=== PATIENT | male | born 1975 | race Hispanic/Latino ===

== ENCOUNTER 2019-07-10 20:22 | Emergency (ER) | payer BC ==
[2019-07-10] MEDS ORDERED: METOCLOPRAMIDE 10 MG/2mL INJ ONE (21:08)
[2019-07-10] MEDS ORDERED: dexAMETHasone 10 MG/ML VIAL ONE (21:09)
[2019-07-10] MEDS ORDERED: ONDANSETRON 4 MG/2 ML VIAL ONE (21:09)
[2019-07-10] MEDS ORDERED: DIPHENHYDRAMINE 50 MG/ML VIAL ONE (21:09)
[2019-07-10] MEDS ORDERED: NA CHLORIDE 0.9% 100 ML IV ONE (21:09)
[2019-07-10] MEDS ORDERED: KETOROLAC 30 MG/ML INJ ONE (21:09)
[2019-07-10] MEDS ORDERED: NA CHLORIDE 0.9% 1,000 ML ONE (21:24)
--- NOTE | 2019-07-10 22:26 | EDPHYS ---
Physician Documentation [facility] Name: Tommy Askew Age: 44 yrs Sex: Male : 1975 Arrival Date: 07/10/2019 Time: 20:24 Bed 23 Private MD: ED Physician Kraig Serra HPI: 07/10 20:47 This 44 yrs old Male presents to ER via Ambulatory with complaints of High cp Blood Pressure, Headache. 20:47 The patient complains of pain to the top of head. cp 20:47 The patient describes the headache as aching, constant. Onset: The symptoms/episode cp began/occurred today. Associated signs and symptoms: Pertinent positives: nausea, Pertinent negatives: altered mental status, dizziness, fever, neck stiffness, vision loss, vomiting, weakness. Severity of symptoms: in the emergency department the pain a " 9" out of "10". Headache History: Other patient reports history of migraines and doest not report "worst headache of life". Patient reports noticing systolic blood pressure of 200 at home and a history of a recent head CT showing 2 brain masses. Historical: - Allergies: 20:41 anything with "PM" in it; bb - Home Meds: 20:41 Singulair Oral [Active]; Lipitor Oral [Active]; bb - PMHx: 20:41 High Cholesterol; bb - PSHx: 20:41 Appendectomy; Cholecystectomy; cyst off of large intestine; bb - Immunization history:: Adult Immunizations up to date. - Coronavirus screen:: The patient has NOT traveled to [place], [place], or [place] in the past 14 days. Proceed with normal triage process as indicated. - Social history:: Smoking status: Patient denies any tobacco usage or history of. - Ebola Screening: : No symptoms or risks identified at this time. ROS: 20:55 Constitutional: Negative for body aches, chills, fever, poor PO intake. cp 20:55 Eyes: Positive for blurry vision, Negative for vision loss. cp 20:55 Neck: Negative for pain with movement, pain at rest, stiffness, tenderness. 20:55 Cardiovascular: Negative for chest pain, edema, palpitations. 20:55 Respiratory: Negative for cough, shortness of breath, wheezing. 20:55 Abdomen/GI: Positive for nausea, Negative for abdominal pain, vomiting, diarrhea, constipation. 20:55 Back: Negative for pain at rest, pain with movement. 20:55 Skin: Negative for rash. 20:55 Neuro: Positive for headache, Negative for altered mental status, dizziness, weakness. 20:55 All other systems are negative. Exam: 21:00 Constitutional: The patient appears in no acute distress, alert, awake, cp non-diaphoretic, non-toxic, well developed, well nourished. 21:00 Head/Face: Normocephalic, atraumatic. cp 21:00 Eyes: Periorbital structures: appear normal, Pupils: equal, round, and reactive to light and accomodation, Extraocular movements: intact throughout, Conjunctiva: normal, no exudate, no injection, Sclera: no appreciated abnormality, Lids and lashes: appear normal, bilaterally. 21:00 ENT: External ear(s): are unremarkable, Ear canal(s): are normal, clear, TM's: bulging, is not appreciated, bilaterally, dullness, bilaterally, erythema, is not appreciated, bilaterally, Nose: is normal, Mouth: Lips: moist, Oral mucosa: pink and intact, moist, Posterior pharynx: is normal, airway is patent, no erythema, no exudate. 21:00 Neck: ROM/movement: is normal, is supple, without pain, no range of motions limitations, no meningismus, no nuchal rigidity. 21:00 Chest/axilla: Inspection: normal, Palpation: is normal, no crepitus, no tenderness. 21:00 Cardiovascular: Rate: tachycardic, Rhythm: regular. 21:00 Respiratory: the patient does not display signs of respiratory distress, Respirations: normal, no use of accessory muscles, labored breathing, is not present, Breath sounds: are clear throughout, no decreased breath sounds. 21:00 Abdomen/GI: Inspection: abdomen appears normal, Palpation: abdomen is soft and non-tender, in all quadrants. 21:00 Back: pain, is absent, ROM is normal. 21:00 Skin: no rash present. 21:00 Neuro: Orientation: to person, place \\T\\ time. Mentation: is normal, Cerebellar function: Romberg testing is negative, normal finger to nose testing, heel to chaves testing is normal, Motor: moves all fours, strength is normal, Sensation: is normal. Vital Signs: 20:41 BP 138 / 85; Pulse 101; Resp 14 S; Temp 98.8(O); Pulse Ox 96% on R/A; Weight 99.79 kg bb (R); Height 5 ft. 9 in. (175.26 cm) (R); Pain 9/10; 21:55 BP 115 / 62; Pulse 91; Pulse Ox 95% on R/A; vc 20:41 Body Mass Index 32.49 (99.79 kg, 175.26 cm) bb MDM: 20:36 Patient medically screened. cp 22:23 Data reviewed: vital signs, nurses notes, radiologic studies, CT scan. cp 22:23 Differential diagnosis: cluster headache, intracerebral hemorrhage, migraine, cp sinusitis, tension headache, intracranial mass. Counseling: I had a detailed discussion with the patient and/or guardian regarding: the historical points, exam findings, and any diagnostic results supporting the discharge/admit diagnosis, radiology results, the need for outpatient follow up, a family practitioner, to return to the emergency department if symptoms worsen or persist or if there are any questions or concerns that arise at home. Response to treatment: the patient's symptoms have markedly improved after treatment, VSS. Headache markedly improved, and as a result, I will discharge patient. 07/10 20:46 Order name: CT Head Brain wo Cont cp 07/10 20:46 Order name: IV; Complete Time: 21:13 cp 07/10 20:46 Order name: Misc. Order: needs ride home; Complete Time: 21:55 cp Administered Medications: 21:16 Drug: Zofran 4 mg Route: IVP; Site: right antecubital; vc 22:20 Follow up: Response: No adverse reaction; Marked relief of symptoms vc 21:18 Drug: TORadol - Ketorolac 15 mg Route: IVP; Site: right antecubital; vc 22:20 Follow up: Response: No adverse reaction; Marked relief of symptoms vc 21:20 Drug: Benadryl 25 mg Route: IVP; Site: right antecubital; vc 22:20 Follow up: Response: No adverse reaction; Marked relief of symptoms vc 21:22 Drug: Reglan 10 mg Route: IVP; Site: right antecubital; vc 22:20 Follow up: Response: No adverse reaction; Marked relief of symptoms vc 21:24 Drug: Decadron - Dexamethasone 10 mg Route: IVP; Site: right antecubital; vc 22:20 Follow up: Response: No adverse reaction; Marked relief of symptoms vc 21:26 Drug: NS 0.9% 1000 ml Route: IV; Rate: 1 bolus; Site: right antecubital; vc 22:20 Follow up: IV Status: Completed infusion vc Disposition: 22:45 Chart complete. cp 07/11 06:35 Co-signature as Attending Physician, Kraig Serra MD I agree with the assessment and tw4 plan of care. Disposition: 07/10/19 22:24 Discharged to Home. Impression: Headache. - Condition is Stable. - Discharge Instructions: General Headache Without Cause, How to Take Your Blood Pressure, [id number], Form - Blood Pressure Record Sheet. - Medication Reconciliation Form, Thank You Letter, Antibiotic Education, Prescription Opioid Use form. - SBAR form (07/10/19 23:03). bb - Follow up: Joe Davis MD; When: 2 - 3 days; Reason: Recheck today's complaints. - Problem is new. - Symptoms have improved. Signatures: Dispatcher [employer] EDMS Caty Salcido RN RN bb Curtis Hennessy, PA PA cp Kraig Serra MD MD tw4 Leydi Waddell RN RN vc Corrections: (The following items were deleted from the chart) 07/10 22:39 22:24 07/10/2019 22:24 Discharged to Home. Impression: Headache. Condition is Stable. vc Forms are Medication Reconciliation Form, Thank You Letter, Antibiotic Education, Prescription Opioid Use. Follow up: Joe Davis; When: 2 - 3 days; Reason: Recheck today's complaints. Problem is new. Symptoms have improved. cp
--- NOTE | 2019-07-10 22:26 | ER ---
Nurse's Notes [facility] Name: Tommy Askew Age: 44 yrs Sex: Male : 1975 Arrival Date: 07/10/2019 Time: 20:24 Bed 23 Private MD: Diagnosis: Headache Presentation: 07/10 20:36 Presenting complaint: Patient states: he had CT scan June 02 which showed " two bb spots" on his brain he states yesterday his BP was over 200 systolic and today he is having a bad headache and was told to come to the ED if he had a bad headache. Pt states he was in an argument earlier today with his roommate. Transition of care: patient was not received from another setting of care. Onset of symptoms was July 10, 2019. Risk Assessment: Do you want to hurt yourself or someone else? Patient reports no desire to harm self or others. Initial Sepsis Screen: Does the patient meet any 2 criteria? No. Patient's initial sepsis screen is negative. Does the patient have a suspected source of infection? No. Patient's initial sepsis screen is negative. Care prior to arrival: None. 20:36 Method Of Arrival: Ambulatory bb 20:36 Acuity: NAVJOT 3 bb Triage Assessment: 20:50 Headache History: The patient has had previous headaches and this one is less severe vc than previous episodes. Pain: Pain currently is 9 out of 10 on a pain scale. Pain began gradually, Also complains of nausea, photophobia. Historical: - Allergies: 20:41 anything with "PM" in it; bb - Home Meds: 20:41 Singulair Oral [Active]; Lipitor Oral [Active]; bb - PMHx: 20:41 High Cholesterol; bb - PSHx: 20:41 Appendectomy; Cholecystectomy; cyst off of large intestine; bb - Immunization history:: Adult Immunizations up to date. - Coronavirus screen:: The patient has NOT traveled to [place], [place], or [place] in the past 14 days. Proceed with normal triage process as indicated. - Social history:: Smoking status: Patient denies any tobacco usage or history of. - Ebola Screening: : No symptoms or risks identified at this time. Screenin:40 Abuse screen: Denies threats or abuse. Nutritional screening: No deficits noted. vc Tuberculosis screening: No symptoms or risk factors identified. Fall Risk None identified. Assessment: 20:41 General: Appears in no apparent distress. uncomfortable, Behavior is calm, cooperative, vc appropriate for age. Pain: Complains of pain in head. Neuro: Level of Consciousness is awake, alert, obeys commands, Oriented to person, place, time. Cardiovascular: Patient's skin is warm and dry. Respiratory: Respiratory effort is even, unlabored, Respiratory pattern is regular, symmetrical. GI: No signs and/or symptoms were reported involving the gastrointestinal system. : No signs and/or symptoms were reported regarding the genitourinary system. EENT: No signs and/or symptoms were reported regarding the EENT system. Derm: Skin is intact, is healthy with good turgor. Musculoskeletal: Circulation, motion, and sensation intact. Range of motion: intact in all extremities. 20:46 Neuro: Reports headache. vc 21:30 Reassessment: Patient and/or family updated on plan of care and expected duration. Pain vc level reassessed. Patient states feeling better. 22:30 Reassessment: Patient and/or family updated on plan of care and expected duration. Pain vc level reassessed. Patient is alert, oriented x 3, equal unlabored respirations, skin warm/dry/pink. Patient denies pain at this time. Patient states feeling better. Patient states symptoms have improved. Vital Signs: 20:41 BP 138 / 85; Pulse 101; Resp 14 S; Temp 98.8(O); Pulse Ox 96% on R/A; Weight 99.79 kg bb (R); Height 5 ft. 9 in. (175.26 cm) (R); Pain 9/10; 21:55 BP 115 / 62; Pulse 91; Pulse Ox 95% on R/A; vc 20:41 Body Mass Index 32.49 (99.79 kg, 175.26 cm) bb ED Course: 20:24 Patient arrived in ED. jg7 20:27 Curtis Hennessy PA is PHCP. cp 20:27 Kraig Serra MD is Attending Physician. cp 20:36 Leydi Waddell RN is Primary Nurse. vc 20:38 Triage completed. bb 20:41 Arm band placed on. vc 20:48 Patient has correct armband on for positive identification. vc 20:55 Inserted saline lock: 20 gauge in right antecubital area, using aseptic technique. jp3 21:09 Patient maintains SpO2 saturation greater than 95% on room air. jp3 21:11 Placed in gown. Bed in low position. Call light in reach. Side rails up X 1. Warm jp3 blanket given. Verbal reassurance given. Pulse ox on. NIBP on. 21:15 CT Head Brain wo Cont In Process Unspecified. EDMS 22:24 Joe Davis MD is Referral Physician. cp 22:37 No provider procedures requiring assistance completed. IV discontinued, intact, vc bleeding controlled, No redness/swelling at site. Pressure dressing applied. Administered Medications: 21:16 Drug: Zofran 4 mg Route: IVP; Site: right antecubital; vc 22:20 Follow up: Response: No adverse reaction; Marked relief of symptoms vc 21:18 Drug: TORadol - Ketorolac 15 mg Route: IVP; Site: right antecubital; vc 22:20 Follow up: Response: No adverse reaction; Marked relief of symptoms vc 21:20 Drug: Benadryl 25 mg Route: IVP; Site: right antecubital; vc 22:20 Follow up: Response: No adverse reaction; Marked relief of symptoms vc 21:22 Drug: Reglan 10 mg Route: IVP; Site: right antecubital; vc 22:20 Follow up: Response: No adverse reaction; Marked relief of symptoms vc 21:24 Drug: Decadron - Dexamethasone 10 mg Route: IVP; Site: right antecubital; vc 22:20 Follow up: Response: No adverse reaction; Marked relief of symptoms vc 21:26 Drug: NS 0.9% 1000 ml Route: IV; Rate: 1 bolus; Site: right antecubital; vc 22:20 Follow up: IV Status: Completed infusion vc Outcome: 22:24 Discharge ordered by MD. cp 22:38 Discharged to home ambulatory, with family. vc 22:38 Condition: improved 22:38 Discharge instructions given to patient, family, Instructed on discharge instructions, follow up and referral plans. Demonstrated understanding of instructions, follow-up care. 22:39 Patient left the ED. vc Signatures: Dispatcher [employer] EDMS Caty Salcido RN RN Curtis Abdullahi PA PA cp Pisarski, Jacob jp3 Cece Blake7 Calcote, Leydi, RN RN vc Corrections: (The following items were deleted from the chart) 21:10 21:09 Inserted saline lock: 20 gauge in right antecubital area, using aseptic jp3 technique. jp3
[2019-07-10 23:02] VITALS: TEMP 98.8
[2019-07-10 23:04] VITALS: BP 115/62; O2SAT 95
--- NOTE | 2019-07-12 10:34 | RAD REPORT ---
EXAM DESCRIPTION: CT Head Without Intravenous Contrast CLINICAL HISTORY: The patient is 44 years old and is Male; HEADACHE TECHNIQUE: Axial computed tomography images of the head/brain without intravenous contrast. Sagitt al and coronal reformatted images were created and reviewed. This CT exam was performed using one o r more of the following dose reduction techniques: automated exposure control, adjustment of the mA and/or kV according to patient size, and/or use of iterative reconstruction technique. COMPARISON: No relevant prior studies available. FINDINGS: Brain: Unremarkable. No hemorrhage. No significant white matter disease. No edema. Ventricles: Unremarkable. No ventriculomegaly. Bones/joints: Unremarkable. No acute fracture. Soft tissues: Unremarkable. Sinuses: Unremarkable as visualized. No acute sinusitis. Mastoid air cells: Unremarkable as visualized. No mastoid effusion. IMPRESSION: No acute intracranial findings. Electronically signed by: Gael Vásquez MD 07/10/2019 9:29 PM AGRICULTURAL ENGINEERING TECHNICIAN Due to temporary technical issues with the PACS/Fluency reporting system, reports are being signed by the in house radiologist as a courtesy to ensure prompt reporting. The interpreting radiologist is f ully responsible for the content of the report.
== END 2019-07-10 22:39 | disposition home or self-care (01) ==
LOC: ER 20:22
DX: R51 Headache (principal); E78.00 Pure hypercholesterolemia, unspecified; Z88.8 Allergy status to other drugs, medicaments and biological substances
CPT/HCPCS: 96361; 70450; 96375; 96374; 99284; J2765; J1200; J1100; J7030; J2405

== ENCOUNTER 2019-08-23 11:14 | Day surgery (SDC) | payer BC ==
--- OUTSIDE RECORDS SUMMARY | 2019-08-23 11:17 | XMS REPORT | Summary of Care ---
:1975 Author Organization [facility] [place] [address] Care Team Providers Name Role Phone Unavailable Primary Care Provider Unavailable Reason for Referral Consult, Test & Treat (Routine) Status Reason Specialty Diagnoses / Referred By Referred To Procedures Contact Contact E-Auth Not Urology Diagnoses Urinary frequency Chidi Rios [place] Urology Needed Procedures CYSTOSCOPY [address] [place] [address] [address]TH FLO[address], [address], [address] Phone: [phone] Phone: Reason for Visit Reason Comments Urinary Frequency Encounter Details Date Type Department Care Team Description 07/19/2019 Office Visit [facility] Chidi Rios MD Urinary Frequency Medicine Urology [address] [place] [address] 10TH [facility], [address] 10[address] Floor, [address] [phone] Allergies No Known Allergiesdocumented as of this encounter (statuses as of 08/01/2019) Medications No known medicationsdocumented as of this encounter (statuses as of 08/01/2019) Active Problems Problem Noted Date Urinary frequency 07/19/2019 documented as of this encounter (statuses as of 08/01/2019) Social History Tobacco Use Types Packs/Day Years Used Date Never Smoker Smokeless Tobacco: Never Used Alcohol Use Drinks/Week oz/Week Comments Not Currently Sex Assigned at Date Recorded Not on file Job Start Date Occupation Industry Not on file Not on file Not on file Travel History Travel Start Travel End No recent travel history available. documented as of this encounter Last Filed Vital Signs Vital Sign Reading Time Taken Comments Blood Pressure 133/85 07/19/2019 2:12 PM GHOST WRITER Pulse 80 07/19/2019 2:12 PM GHOST WRITER Temperature 36.9 C (98.5 F) 07/19/2019 2:12 PM GHOST WRITER Respiratory Rate - - Oxygen Saturation - - Inhaled Oxygen Concentration - - Weight - - Height - - Body Mass Index - - documented in this encounter Progress Notes Phyllis Roach - 07/19/2019 2:20 PM GHOST WRITER HPI Review of Systems Constitutional: Positive for activity change, appetite change, chills, fatigue and unexpected weightchange. HENT: Positive for congestion and sinus pressure. Eyes: Positive for visual disturbance. Cardiovascular: Negative. Gastrointestinal: Positive for abdominal pain, nausea, rectal pain and vomiting. Endocrine: Positive for cold intolerance, heat intolerance, polydipsia and polyuria. Genitourinary: Positive for difficulty urinating and frequency. Musculoskeletal: Positive for back pain. Skin: Positive for rash. Allergic/Immunologic: Positive for environmental allergies and food allergies. Neurological: Positive for dizziness, weakness, light-headedness and headaches. Hematological: Bruises/bleeds easily. Psychiatric/Behavioral: Positive for agitation, decreased concentration and sleep disturbance. The patient is hyperactive. All other systems reviewed and are negative. Physical Exam hidi Rios MD - 07/19/2019 11:30 AM CST44 yo male, NPV for urinary frequency. In past year, noted increased urinary frequency. Feels like not emptying well. Has significant terminal dribbling. Frequency is daytime and nighttime. Nocturia is better since has curtailed evening fluid intake. No hematuria, straining, dysuria. Hx: No stones. No prior surgery. No prior UTIs. ? Had a cyst near the anus - Dr. Choudhury operated, packed it for a while. FHx: had colon cancer. And prostate problems but pt thinks not prostate cancer. PMH: Migraines. "CT - spot on both sides of his brain? But repeat scan was normal" - being evaluated. ? Icteric? Allerg: No Excedrin PM. Local anesthetic lidocaine doesn't work for him. No antibiotic allergies known. PEx: Abd neg. Groins neg. Genit normal male. Perineum neg. CATHY: 40 gm prostate, no induration or asymmetry or nodule. Small scar near anus from prior incision? Benign finding. UA neg. SH: Nonsmoker. Quit 21 years ago. Works as [employer]. Imp: Urinary frequency. Plan: Send urine for culture and cytology. Draw today: F/T PSA and Chem 7. Return for flex cysto. documented in this encounter Plan of Treatment Date Type Specialty Care Team Description 08/26/2019 Procedure visit Urology Chidi Rios MD [address] [facility] 10TH FLOOR, [place] [address] [phone] Name Type Priority Associated Diagnoses Order Schedule CYSTOSCOPY Procedure Routine Urinary frequency 1 Occurrences starting 07/19/2019 until 07/19/2020 CYTOLOGY, URINE Lab Routine Urinary frequency Ordered: 07/19/2019 URINE CULTURE Microbiology Routine Urinary frequency Ordered: 07/19/2019 CYTOLOGY, URINE Lab Routine Urinary frequency Ordered: 07/19/2019 Health Maintenance Due Date Last Done Comments TETANUS SHOT (ADULT) 1992 HIV SCREENING 1995 FLU VACCINE > 6 MONTHS 12/31/2018 documented as of this encounter Procedures Procedure Name Priority Date/Time Associated Comments Diagnosis URINE CULTURE Routine 07/19/2019 12:48 Urinary frequency Results for this PM GHOST WRITER procedure are in the results section. PSA,TOTAL AND FREE Routine 07/19/2019 12:48 Urinary frequency Results for this PM GHOST WRITER procedure are in the results section. BASIC METABOLIC PANEL Routine 07/19/2019 12:48 Urinary frequency Results for this PM GHOST WRITER procedure are in the results section. YANDY,POST-VOID Routine 07/19/2019 Urinary frequency Results for this RES,US,NON-IMG procedure are in the results section. UROFLOWMETRY Routine 07/19/2019 Urinary frequency POCT URINALYSIS Routine 07/19/2019 Urinary frequency Results for this DIPSTICK procedure are in the results section. documented in this encounter Results URINE CULTURE (07/19/2019 12:48 PM GHOST WRITER) URINE CULTURE SPECIMEN NUMBER: [id number] CPL Comment: CULTURE, URINE SPECIMEN NUMBER: [id number] SPECIMEN COMMENT: URINE SOURCE: URINE REPORT STATUS: FINAL FINAL REPORT: 07/21/2019 <10,000 CFU/ML UROGENITAL SUSANNA PRESENT NO COMMON PATHOGENS Unless Otherwise Indicated, All Testing Performed At: [facility], [address] [place] [id number] Classified Ad Taker: Lester Roque M.D. CLIA Number [id number] [place]. [id number] Specimen Urine (substance) Performing Organization Address [facility] Phone Number [facility] [address] [place] [address] [phone] PSA,TOTAL AND FREE (07/19/2019 12:48 PM GHOST WRITER) PSA 1.74 <=4.00 NG/ML CPL PSA, FREE 0.48 NG/ML CPL PSA, % FREE 28 SEE BELOW % CPL Comment: Methodology is [employer]ub[employer] Electrochemiluminescence Immunoassay with World Health Organization (WHO) calibration. $$$$$ INTERPRETIVE INFORMATION $$$$$ INTERPRETIVE TABLE: Probability of prostatic carcinoma based on percent of free PSA in men with total PSA OF 4.00-10.00 ng/mL and negative digital rectal examination: Patient Age Free PSA 50-59 years 60-69 years >= 70 years (%) (%) (%) (%) <=10 49 58 65 11-18 27 34 41 19-25 18 24 30 >=26 9 12 16 INTERPRETIVE TABLE: Sensitivity and specificity for prostate carcinoma, men of all age groups, no prior stratification by total PSA: Free PSA cutoff Sensitivity Specificity (Less than %) (%) ( %) 23 86 30 25 93 20 27 96 14 (Ref: Catalona WJ et al. ADRIA; 277: 4050-5094. Benavides YT et al. Urology; 47:518-524. Laura RP et al. Urology; 48:45-50.) Unless Otherwise Indicated, All Testing Performed At: [facility], [address] [place] [id number] Classified Ad Taker: Lester Roque M.D. CLIA Number [id number] [place]. [id number] Specimen Blood Performing Organization Address [facility] Phone Number [facility] [address] [place] [phone] BASIC METABOLIC PANEL (07/19/2019 12:48 PM GHOST WRITER) GLUCOSE 92 70 - 99 MG/DL CPL BLOOD UREA NITROGEN 19 6 - 20 MG/DL CPL CREATININE 0.98 0.80 - 1.40 CPL MG/DL EGFR AA 110 >60 CPL ML/MIN/1.73 EGFR 95 >60 CPL ML/MIN/1.73 SODIUM 141 133 - 146 CPL MEQ/L POTASSIUM 3.9 3.5 - 5.4 CPL MEQ/L CHLORIDE 101 95 - 107 CPL MEQ/L CO2 27 19 - 31 MEQ/L CPL CALCIUM 9.0 8.5 - 10.5 CPL Comment: MG/DL Unless Otherwise Indicated, All Testing Performed At: [facility], [address] [place] [id number] Classified Ad Taker: Lester Roque M.D. CLIA Number [id number] [place]. [id number] Specimen Blood - Left upper arm structure (body structure) Performing Organization Address City/State/Zipcode Phone Number [address] [address] UROFLOWMETRY (07/19/2019) PVR 110 cc/ml PEAK FLOW 38.4 cc/sec VOIDED VOLUME 335 cc YANDY,POST-VOID RES,US,NON-IMG (07/19/2019) PVR 110 cc/ml POCT URINALYSIS DIPSTICK (07/19/2019) COLOR UA Yellow YELLOW/STRAW CLARITY UA Clear CLEAR GLUCOSE UA Negative NEGATIVE BILIRUBIN UA Negative NEGATIVE KETONES UA Negative NEGATIVE SPECIFIC GRAVITY UA 1.010 1.005 - 1.035 BLOOD UA Negative NEGATIVE PH UA 6.0 5 - 9 PROTEIN UA Negative NEGATIVE UROBILINOGEN UA 0.02 E.U/DL NORMAL MG/DL LEUKOCYTE ESTERASE UA Negative NEGATIVE NITRITE UA Negative NEGATIVE REDUCING SUBSTANCES URINE Specimen documented in this encounter Visit Diagnoses Diagnosis Urinary frequency - Primary documented in this encounter Insurance Payer Benefit Plan / Subscriber ID Effective Dates Phone Address Type Group BLUE CROSS PPO/EPO - BCBS xxxxxxxxxxxx 2019-Present [address] [place] [address] documented as of this encounter
[2019-08-23] MEDS ORDERED: Ringers Lactate 1,000 ML IV ONE (11:37)
[2019-08-23] MEDS ORDERED: MIDAZOLAM HCL 2 MG/2 ML INJ ONE (11:47)
[2019-08-23] MEDS ORDERED: FENTANYL CITR 100 MCG/2 ML ONE ×2 (11:47→13:00)
[2019-08-23] MEDS ORDERED: propofoL 200 MG/20 ML VIAL IV ONE (11:47)
[2019-08-23] MEDS ORDERED: LIDOCAINE 2% MPF 5 ML VIAL ONE (11:48)
[2019-08-23] MEDS ORDERED: dexAMETHasone 10 MG/ML VIAL ONE (11:48)
[2019-08-23] MEDS: CEFAZOLIN/SWI 1gm 1 GM/10 ML SYR ONE ×2 (12:26→12:45)
[2019-08-23] MEDS: BUPIVACA 0.25%/EPI 0.0005% MDV 50 ML VIAL ONE ×2 (12:27→12:53)
--- NOTE | 2019-08-23 13:07 | P.OP ---
Preoperative diagnosis: Perianal Abscess Postoperative diagnosis: Perianal Abscess Primary procedure: Incision and Drainage of Perianal Abscess Secondary procedure: Exam Under Anesthesia Anesthesia: GETA + Local Estimated blood loss: <2cc Specimen: cultures Findings: no fistula noted, + hemorrhoids Complications: None Transferred to: Recovery Room Condition: Good
[2019-08-23] MEDS ORDERED: KETOROLAC 30 MG/ML INJ ONE (13:09)
--- NOTE | 2019-08-23 13:56 | OP ---
Date of Procedure: 08/23/2019 Surgeon: Juan Reed MD, Preoperative Diagnosis: Perineal abscess. Postoperative Diagnosis: Perineal abscess. Procedures Performed: 1.Excision of perineal abscess. 2.Exam under anesthesia. Anesthesia: Endotracheal plus local. Estimated Blood Loss: Less than 10 mL. Specimen: Cultures. Findings: No fistula noted. Positive internal hemorrhoids. Complications: None. Disposition: Transferred to recovery room in good condition. Procedure In Detail: After informed consent was obtained, the patient was brought to the operating r oom, prepped and draped in the usual sterile fashion. After the patient was in lithotomy position, p alpation of the patient's right gluteal area right in the perianal position was noted to have a fluid collection. This was opened radially emanating from approximately 1.5 cm from the anal verge, immed iately encountered was abscess. This was cultured for both aerobic and anaerobic speciation at this time. I then digitized and opened up loculations in this area. This was apparently a multiloculated abscess. At this point, I then digitally probed the tract to see if there was a fistulous tract and used a probe. There appeared to be evidence of a previous tract on the inside of the anal canal. U nder exam under anesthesia using an anoscope, however, I could not elicit a tract at this time. Ther efore, I irrigated the area copiously multiple times until completely clear, packed the anus with Gel foam, and placed quarter-inch iodoform packing into the cavity and a sterile dressing was placed over top. The patient tolerated the procedure well without evidence of complication, transferred to the PACU in good condition. All counts were correct at the end of the case. JOSÉ LUIS/SYL Voice ID: [id number] Report ID: [id number]
[2019-08-23 14:30] VITALS: TEMP 97.9
[2019-08-23] MEDS ORDERED: HYDROCODONE/APAP 5/325 MG TAB ONE (14:54)
[2019-08-23 15:45] VITALS: BP 130/84; O2SAT 98
== END 2019-08-23 15:40 | disposition home or self-care (01) ==
LOC: OR 11:14
PROVIDERS: ATTEND Surgery
PROC: 0J9B0ZZ Drainage of Perineum Subcutaneous Tissue and Fascia, Open Approach (ICD-10-PCS; principal; 2019-08-23 14:30)
DX: L02.215 Cutaneous abscess of perineum (principal); E78.00 Pure hypercholesterolemia, unspecified; G47.33 Obstructive sleep apnea (adult) (pediatric); Z87.891 Personal history of nicotine dependence; Z80.0 Family history of malignant neoplasm of digestive organs; Z82.49 Family history of ischemic heart disease and other diseases of the circulatory system
CPT/HCPCS: 87070; 87205; 87075; 87077; 87186; 10060; J2704; J2250; J3010 ×2; J1100; J0690; J7120

== ENCOUNTER 2019-08-23 23:14 | Emergency (ER) | payer BC ==
--- NOTE | 2019-08-24 01:08 | ER ---
Nurse's Notes [facility] Name: Tommy Askew Age: 44 yrs Sex: Male : 1975 Arrival Date: 08/23/2019 Time: 23:18 Bed 15 Private MD: Diagnosis: Encounter for change or removal of surgical wound dressing Presentation: 08/22 23:33 Chief complaint: Patient states: i just had a surgery with Dr Reed this morning and mg2 i took shower and the dressing and packing came off. i just need to replace it. Coronavirus screen: Patient denies fever greater than 100.4F, cough, shortness of breath, or difficulty breathing. Proceed with normal triage process. Ebola Screen: No symptoms or risks identified at this time. Initial Sepsis Screen: Does the patient meet any 2 criteria? No. Patient's initial sepsis screen is negative. Initial Sepsis Screen: Does the patient have a suspected source of infection? No. Patient's initial sepsis screen is negative. Risk Assessment: Do you want to hurt yourself or someone else? Patient reports no desire to harm self or others. 23:33 Method Of Arrival: Ambulatory mg2 23:33 Acuity: NAVJOT 5 mg2 23:40 Onset of symptoms was August 23, 2019. mg2 Historical: - Allergies: 23:39 anything with "PM" in it; mg2 - Home Meds: 23:39 Lipitor Oral [Active]; Singulair Oral [Active]; mg2 - PMHx: 23:39 High Cholesterol; mg2 - PSHx: 23:39 Appendectomy; Cholecystectomy; cysts removal; mg2 - Immunization history:: Flu vaccine is not up to date. Flu vaccine is not up to date. - Social history:: Smoking status: Patient denies any tobacco usage or history of. Patient/guardian denies using alcohol, street drugs, IV drugs, Smoking status: Patient denies any tobacco usage or history of. Patient/guardian denies using alcohol, street drugs, IV drugs. Screenin:39 Abuse screen: Denies threats or abuse. Denies injuries from another. Nutritional mg2 screening: No deficits noted. Tuberculosis screening: No symptoms or risk factors identified. Fall Risk None identified. Assessment: 23:39 General: Appears in no apparent distress. comfortable, Behavior is calm, cooperative. mg2 Pain: Denies pain. Neuro: Level of Consciousness is awake, alert, obeys commands, Oriented to person, place, time, situation. Cardiovascular: Capillary refill < 3 seconds Patient's skin is warm and dry. Respiratory: Airway is patent Respiratory effort is even, unlabored, Respiratory pattern is regular, symmetrical. GI: No signs and/or symptoms were reported involving the gastrointestinal system. : No signs and/or symptoms were reported regarding the genitourinary system. EENT: Derm: post I and D in the buttocks. Musculoskeletal: Circulation, motion, and sensation intact. Capillary refill < 3 seconds. Vital Signs: 23:30 BP 142 / 100; Pulse 92; Resp 18; Temp 97.2(T); Pulse Ox 100% on R/A; Pain 0/10; fu 23:33 BP 142 / 100; Pulse 92; Resp 18; Temp 97.2; Pulse Ox 100% on R/A; mg2 08/23 01:20 BP 135 / 78; Pulse 90; Resp 18; Temp 97.5(O); Pulse Ox 100% on R/A; mg2 ED Course: 08/22 23:18 Patient arrived in ED. cf2 23:33 Jese Moreau, MELONIE is Primary Nurse. mg2 23:35 Triage completed. mg2 23:36 Arm band placed on. mg2 23:40 Patient has correct armband on for positive identification. mg2 23:45 Almas Young NP is PHCP. pm1 23:45 Kai Castelan MD is Attending Physician. pm1 08/23 01:06 Juan Reed MD is Referral Physician. pm1 01:20 Patient did not have IV access during this emergency room visit. fu 01:20 Dressings: iodoform, 4x4 gauze to gluteal fold. fu 01:31 No provider procedures requiring assistance completed. fu Administered Medications: No medications were administered Outcome: 01:06 Discharge ordered by . pm1 01:25 Discharged to home ambulatory. fu 01:25 Condition: stable 01:25 Discharge instructions given to patient, Instructed on discharge instructions, Demonstrated understanding of instructions, wound care. 01:32 Patient left the ED. mg2 Signatures: Almas Young NP PERSONAL CHEF pm1 Abhishek Skinner RN RN Jese Moreau RN RN [facility] Lacy Stack cf2 Corrections: (The following items were deleted from the chart) 08/22 23:36 23:33 BP 142 / 100; Resp 18bpm; Pulse Ox 100% RA; Temp 97.2F; mg2 mg2 08/23 01:30 08/22 23:00 BP 142 / 100; Pulse 92bpm; Resp 18bpm; Pulse Ox 100% RA; Temp 97.2F fu Tympanic; Pain 0/10; fu
--- NOTE | 2019-08-24 01:08 | EDPHYS ---
Physician Documentation [facility] Name: Tommy Askew Age: 44 yrs Sex: Male : 1975 Arrival Date: 08/23/2019 Time: 23:18 Bed 15 Private MD: ED Physician Kai Castelan HPI: 08/23 01:05 This 44 yrs old Male presents to ER via Ambulatory with complaints of Repack pm1 Cyst Pocket. 01:05 Patient presents to ED for recheck of: surgical packing. Patient had incision and pm1 drainage of an abscess with Dr. Reed today and the packing came out a little while he was showering. He was instructed to replace the packing every 6 hours and he was due for a packing change. The patient has experienced a previous episode, approximately 13 years ago. Historical: - Allergies: 08/22 23:39 anything with "PM" in it; mg2 - Home Meds: 23:39 Lipitor Oral [Active]; Singulair Oral [Active]; mg2 - PMHx: 23:39 High Cholesterol; mg2 - PSHx: 23:39 Appendectomy; Cholecystectomy; cysts removal; mg2 - Immunization history:: Flu vaccine is not up to date. Flu vaccine is not up to date. - Social history:: Smoking status: Patient denies any tobacco usage or history of. Patient/guardian denies using alcohol, street drugs, IV drugs, Smoking status: Patient denies any tobacco usage or history of. Patient/guardian denies using alcohol, street drugs, IV drugs. ROS: 08/23 01:05 Constitutional: Negative for fever, chills, and weight loss. pm1 Cardiovascular: Negative for chest pain, palpitations, and edema, Respiratory: Negative for shortness of breath, cough, wheezing, and pleuritic chest pain, Back: Negative for injury and pain, MS/Extremity: Negative for injury and deformity, Skin: Negative for injury, rash, and discoloration, Neuro: Negative for headache, weakness, numbness, tingling, and seizure. All other systems are negative. Exam: 01:05 Constitutional: This is a well developed, well nourished patient who is awake, alert, pm1 and in no acute distress. Head/Face: Normocephalic, atraumatic. Chest/axilla: Normal chest wall appearance and motion. Nontender with no deformity. No lesions are appreciated. Cardiovascular: Regular rate and rhythm with a normal S1 and S2. No gallops, murmurs, or rubs. Normal PMI, no JVD. No pulse deficits. Respiratory: Lungs have equal breath sounds bilaterally, clear to auscultation and percussion. No rales, rhonchi or wheezes noted. No increased work of breathing, no retractions or nasal flaring. 01:05 Skin: Wound recheck: Abscess: the packing is in place, no surround cellulitis or discharge or bleeding present. Vital Signs: 08/22 23:30 BP 142 / 100; Pulse 92; Resp 18; Temp 97.2(T); Pulse Ox 100% on R/A; Pain 0/10; fu 23:33 BP 142 / 100; Pulse 92; Resp 18; Temp 97.2; Pulse Ox 100% on R/A; mg2 08/23 01:20 BP 135 / 78; Pulse 90; Resp 18; Temp 97.5(O); Pulse Ox 100% on R/A; mg2 Procedures: 01:05 Performed Packing changed with 1/4 inch iodoform gauze. Patient tolerated well. pm1 MDM: 00:42 Patient medically screened. pm1 01:05 Data reviewed: vital signs. Data interpreted: Pulse oximetry: on room air is 100 %. pm1 Interpretation: normal. Counseling: I had a detailed discussion with the patient and/or guardian regarding: the historical points, exam findings, and any diagnostic results supporting the discharge/admit diagnosis, the need for outpatient follow up, to return to the emergency department if symptoms worsen or persist or if there are any questions or concerns that arise at home. Administered Medications: No medications were administered Disposition: : Co-signature as Attending Physician, Kai Castelan MD. pkreva Disposition: 08/24/19 01:06 Discharged to Home. Impression: Encounter for change or removal of surgical wound dressing. - Condition is Stable. - Discharge Instructions: Incision and Drainage, Care After. - Medication Reconciliation Form, Thank You Letter, Antibiotic Education, Prescription Opioid Use form. - Follow up: Emergency Department; When: As needed; Reason: Worsening of condition. Follow up: Juan Reed MD; When: 2 - 3 days; Reason: Recheck today's complaints, Continuance of care, Re-evaluation by your physician. - Problem is new. - Symptoms have improved. Signatures: Kai Castelan MD MD pkl Almas Young, COAL YARD SUPERVISOR COAL YARD SUPERVISOR pm1 Jese Moreau, RN RN mg2 Corrections: (The following items were deleted from the chart) 01:32 01:06 08/24/2019 01:06 Discharged to Home. Impression: Encounter for change or removal mg2 of surgical wound dressing. Condition is Stable. Forms are Medication Reconciliation Form, Thank You Letter, Antibiotic Education, Prescription Opioid Use. Follow up: Emergency Department; When: As needed; Reason: Worsening of condition. Follow up: Juan Reed; When: 2 - 3 days; Reason: Recheck today's complaints, Continuance of care, Re-evaluation by your physician. Problem is new. Symptoms have improved. pm1
[2019-08-24 01:41] VITALS: O2SAT 100
[2019-08-24 01:44] VITALS: BP 135/78; TEMP 97.5
== END 2019-08-24 01:32 | disposition home or self-care (01) ==
LOC: ER 23:14
DX: Z48.01 Encounter for change or removal of surgical wound dressing (principal)
CPT/HCPCS: 99281

== ENCOUNTER 2019-10-06 11:06 | Day surgery (SDC) | payer BC, OTHER ==
[2019-10-06] MEDS ORDERED: Ringers Lactate 1,000 ML IV ONE (11:49)
[2019-10-06] MEDS ORDERED: CEFAZOLIN/SWI 1gm 1 GM/10 ML SYR ONE (11:49)
[2019-10-06] MEDS ORDERED: LIDOCAINE 1% MPF 5 ML VIAL ONE (13:20)
[2019-10-06] MEDS ORDERED: propofoL 200 MG/20 ML VIAL IV ONE (13:20)
[2019-10-06] MEDS ORDERED: FENTANYL CITR 100 MCG/2 ML ONE ×2 (13:20→14:26)
[2019-10-06] MEDS ORDERED: MIDAZOLAM HCL 2 MG/2 ML INJ ONE (13:20)
[2019-10-06] MEDS ORDERED: BUPIVACA 0.25%/EPI 0.0005%/PF 30 ML VIAL ONE (13:23)
[2019-10-06] MEDS ORDERED: METHYLENE BLUE 0.5% 10 ML AMP ONE (13:34)
[2019-10-06] MEDS ORDERED: CEFAZOLIN SODIUM 1 GM/VIAL IVP ONE (13:50)
[2019-10-06] MEDS ORDERED: KETOROLAC 30 MG/ML INJ ONE (13:59)
[2019-10-06] MEDS ORDERED: BUPIVACA 0.25%/EPI 0.0005%/PF 30 ML VIAL IJ ONE ×2 (14:05)
[2019-10-06] MEDS ORDERED: METHYLENE BLUE 1% 10 ML AMP IV ONE ×2 (14:05)
[2019-10-06] MEDS ORDERED: ONDANSETRON 4 MG/2 ML VIAL ONE (14:12)
--- NOTE | 2019-10-06 14:47 | P.OP ---
Preoperative diagnosis: Perianal Fistula with Abscess Postoperative diagnosis: Perianal Fistula with Abscess Primary procedure: Incision and Drainage of Perianal Abscess Secondary procedure: Placement of Seton through transphincteric fistula Anesthesia: GETA Estimated blood loss: <20cc Specimen: Cultures Findings: Transphincteric anal fistula with abscess Complications: None Drain(s): Other (seton) Transferred to: Recovery Room Condition: Good
[2019-10-06] MEDS: HYDROMORPHONE HCL 1 MG/ML INJ IV ONE ×2 (15:14→15:20)
[2019-10-06] MEDS ORDERED: PROMETHAZINE INJ 25 MG/ML AMP ONE (15:19)
[2019-10-06] MEDS ORDERED: HYDROMORPHONE HCL 1 MG/ML INJ ONE (15:19)
[2019-10-06] MEDS ORDERED: HYDROCODONE/APAP 5/325 MG TAB ONE (15:52)
[2019-10-06 15:54] VITALS: TEMP 98
[2019-10-06 16:31] VITALS: BP 132/81; O2SAT 100
--- NOTE | 2019-10-07 01:13 | OP ---
Date of Procedure: 10/06/2019 Surgeon: Dorcas Reed MD, Preoperative Diagnosis: Perianal fistula with abscess. Postoperative Dignosis: Transsphincteric perianal fistula with abscess. Procedures: 1.Incision and drainage of perianal abscess. 2.Placement of a seton through the transsphincteric fistula. Anesthesia: General endotracheal. Estimated Blood Loss: 20 mL. Specimens: Cultures for both aerobic and anaerobic speciation. Findings: Transsphincteric anal fistula with abscess. Complications: None. Drains: Seton. Disposition: Transferred to recovery room in good condition. Procedure In Detail: After informed consent was obtained, patient was brought to the operating room, placed in lithotomy position. After patient was prepped and draped in usual sterile fashion and devon quate anesthesia was achieved, I performed a digital rectal examination and felt an area of firmness in the posterior position just to the 7 o'clock position with the patient in lithotomy position. I t hen placed a small anoscope and dilated to a larger anoscope and inspected the area and a fistulous t ract was appreciated. Additionally, on the skin following Goodsall's rule, there was a perianal fist judy with draining abscess at approximately the 8 o'clock position. I opened the abscess using a 15 b lade down through subcutaneous tissues and an abscess was encountered. As it was spontaneously drain ing, I cultured this for aerobic and anaerobic speciation and digitized the tract feeling to see if t here was a fistulous tract between the two, and placing a probe gently through the tract, I was able to delineate the tract that had been evident from this area in a what appeared to be transsphincteric position. I then passed a seton through this area, which was a red vessel loop and copiously irriga dorcas the area and cleaned out the abscess. There were no loculations in the area. Patient does have grade 2-3 appearing internal anal hemorrhoids. The seton was then secured using a 2-0 nylon suture. The anus and rectum were washed out and irrigated and a Gel-Foam was placed into this area into the anus to allow for passage. No hemostatic maneuvers were required. The abscess cavity was irrigated multiple times and completely clear and packed with quarter-inch iodoform packing and a sterile dress ing was placed over top. Patient tolerated the procedure well without evidence of complication and t ransferred to PACU in good condition. All counts were correct at the end of the case. JOSÉ LUIS/SYL Voice ID: [id number] Report ID: [id number]
== END 2019-10-06 16:25 | disposition home or self-care (01) ==
LOC: PRE 11:06
PROVIDERS: ATTEND Surgery
PROC: 0DQQ0ZZ Repair Anus, Open Approach (ICD-10-PCS; 2019-10-06)
PROC: 0D9Q0ZX Drainage of Anus, Open Approach, Diagnostic (ICD-10-PCS; principal; 2019-10-06 13:45)
DX: K61.0 Anal abscess (principal); Z11.59 Encounter for screening for other viral diseases; I10 Essential (primary) hypertension; E78.00 Pure hypercholesterolemia, unspecified; Z90.49 Acquired absence of other specified parts of digestive tract; Z87.891 Personal history of nicotine dependence; Z80.0 Family history of malignant neoplasm of digestive organs; Z82.49 Family history of ischemic heart disease and other diseases of the circulatory system
CPT/HCPCS: 87070; 87205; 87075; 87077; 87186; 46050; 46020; J2704; J2250; J3010 ×2; J1170 ×2; J0690 ×2; J7120; J2405; J2550

== ENCOUNTER 2020-11-29 18:38 | Emergency (ER) | payer BC, SELFPAY ==
--- OUTSIDE RECORDS SUMMARY | 2020-11-29 18:42 | XMS REPORT | Continuity of Care Document ---
:1975 Author Organization [facility] t Address [address] [place] [address] Dr. [address]. [address] [place] [address] Care Team Providers Name Role Phone Joe aDvis MD Primary Care Physician [phone] [facility] Attending Clinician Unavailable Sandra Stovall MD Attending Clinician Blanca ADAMS Attending Clinician Problems This patient has no known problems. Allergies, Adverse Reactions, Alerts This patient has no known allergies or adverse reactions. Family History Family Member Diagnosis Comments Start Date Stop Date Source Natural father Prostate cancer [place] Social History Social Habit Start Date Stop Date Quantity Comments Source Tobacco use and 2020-03-30 2020-03-30 Never used [place] [facility] ethodist exposure 00:00:00 00:00:00 Sex Ass[birth year] At [birth year] [facility] ethodist 00:00:00 00:00:00 Smoking Status Start Date Stop Date Source Never smoker [place] [facility] t Medications Ordered Filled Start Stop Current Ordering Indication Dosage Frequency Signature Comments Components Source Medication Medication Date Date Medication? Clinician (SIG) Name Name atorvastati 2019-06 Yes 10mg QD Take 10 mg Nath n (LIPITOR) 0-29 by mouth Meth vicenta 10 mg 13:25: daily. st tablet 51 sodium,pota 2019-06 Yes Dispense [place] ssium,mag 0-29 kit and Methodi sulfates 00:00: follow st (Suprep 00 directions Bowel Prep per office Kit) 17.5-3.13-1 .6 gram recon soln montelukast Yes 10mg QD Take 10 mg Nath (SINGULAIR) 9-22 by mouth Meth vicenta 10 mg 00:00: every st tablet 00 morning. Vital Signs Vital Name Observation Time Observation Value Comments Source Systolic blood 2020-03-30 13:23:00 143 mm[Hg] [place] pressure Diastolic blood 2020-03-30 13:23:00 98 mm[Hg] [place] pressure Heart rate 2020-03-30 13:23:00 90 /min [place] Body height 2020-03-30 13:23:00 175.3 cm [place] Body weight 2020-03-30 13:23:00 101.606 kg [place] BMI 2020-03-30 13:23:00 33.08 kg/m2 [place] Procedures Procedure Date / Time Performed Performing Clinician [facility] e SURGICAL PATHOLOGY 2020-04-10 14:26:00 Raul Stovall on [place] REQUEST Plan of Care Planned Activity Planned Date Details Comments Source Future Scheduled 2020-12-31 INFLUENZA VACCINE [place] Test 00:00:00 [code = INFLUENZA VACCINE] Future Scheduled 1995 Hepatitis C [place] Met [facility]odist Test 00:00:00 screening (procedure) [code = 433508945] Future Scheduled 1989 COVID-19 VACCINE (1) Anabelle charltonn [place] Test 00:00:00 [code = COVID-19 VACCINE (1)] Encounters Start End Encounter Admission Attending Care Care Encounter Source Date/Time Date/Time Type Type Clinicians Facility Department ID 2020-04-10 2020-04-10 Outpatient [facility] [id number] [place] 00:00:00 00:00:00 RAUL [address] 2020-03-30 2020-03-30 Outpatient [facility] [id number] [place] 00:00:00 00:00:00 RAUL [address] 2019-07-19 2019-07-19 Office MELVI Rios [id number] 11:06:44 13:01:16 Visit Chidi GUTIÉRREZ [id number] Results Test Description Test Time Test Comments Results Result Comments Source Surgical pathology request 2020-04-11 12:51:39 Test Item Value Reference Range Interpretation Comme nts Case number (test code = [id number]) [id number] Surgical pathology report (test code = See link below for PDF Lab R eport 9181) Result status (test code = [id number]) This is Final Report for [id number] [facility]
[2020-11-29] MEDS ORDERED: ONDANSETRON 4 MG/2 ML VIAL ONE (22:10)
[2020-11-29] MEDS ORDERED: Ringers Lactate 1,000 ML IV ONE (22:11)
[2020-11-29] MEDS ORDERED: KETOROLAC 30 MG/ML INJ ONE (22:11)
[2020-11-29 22:13] LABS: Absolute Lymphocytes (CBC) 0.7 K/uL (0.7-4.9); Basophils % 0.2 % (0-1.3); Hematocrit 47.8 % (39.6-49.0); MPV 8.5 fL (7.6-11.3); RBC Red Blood Cell Count 5.36 M/uL (4.33-5.43)
[2020-11-29 22:28] LABS: Potassium 3.7 mmol/L (3.5-5.1)
--- NOTE | 2020-11-29 22:35 | ER ---
Nurse's Notes [facility] Name: Tommy Askew Age: 45 yrs Sex: Male : 1975 Arrival Date: 11/29/2020 Time: 18:41 Bed 4 Private MD: Joe Davis T Diagnosis: Pneumonia due to SARS-associated coronavirus Presentation: 11/29 19:27 Chief complaint: Patient states: cough, SOB, fever, nausea, loss of taste and smell, bs2 for last 8 days, pt states he took 3 extra strength tylenol [employer]. Chief complaint:. Coronavirus screen: Client denies travel out of the [place] in the last 14 days. chills, cough unrelated to allergies, difficulty breathing, fatigue, fever, headache, nausea, shortness of breath, loss of taste or smell, vomiting. Client presents with at least one sign or symptom that may indicate coronavirus-19. Standard/surgical mask placed on the client. Ebola Screen: Patient negative for fever greater than or equal to 101.5 degrees Fahrenheit, and additional compatible Ebola Virus Disease symptoms Patient denies exposure to infectious person. Patient denies travel to an Ebola-affected area in the 21 days before illness onset. No symptoms or risks identified at this time. Initial Sepsis Screen: Does the patient meet any 2 criteria? HR > 90 bpm. Does the patient have a suspected source of infection? Yes: Productive cough/pneumonia. Risk Assessment: Do you want to hurt yourself or someone else? Patient reports no desire to harm self or others. Onset of symptoms. 19:27 Method Of Arrival: Ambulatory bs2 19:27 Acuity: NAVJOT 3 bs2 Triage Assessment: 19:35 General: Appears in no apparent distress. uncomfortable, well groomed, Behavior is bs2 calm, cooperative, appropriate for age. Pain: Complains of pain in face. Respiratory: Reports shortness of breath at rest cough that is productive, Onset: The symptoms/episode began/occurred gradually, the patient has mild shortness of breath. Historical: - Allergies: 19:33 anything with "PM" in it; bs2 - Home Meds: 19:33 Lipitor Oral [Active]; Singulair Oral [Active]; bs2 - PMHx: 19:33 High Cholesterol; bs2 - Immunization history:: Client reports having NOT received the Covid vaccine. Flu vaccine is not up to date. - Social history:: Smoking status: Patient denies any tobacco usage or history of. - Coronavirus screen:: The patient has NOT traveled to [place] in the past 14 days. The patient has NOT had contact with known/suspected case of Coronavirus?. Screenin:45 Abuse screen: Denies threats or abuse. Nutritional screening: No deficits noted. jb4 Tuberculosis screening: No symptoms or risk factors identified. Fall Risk None identified. Assessment: 20:45 General: Appears in no apparent distress. comfortable, Behavior is calm, cooperative, jb4 appropriate for age. Pain: Complains of pain in abdomen Pain does not radiate. Pain currently is 10 out of 10 on a pain scale. Neuro: Level of Consciousness is awake, alert, obeys commands, Oriented to person, place, time, situation. Cardiovascular: Patient's skin is warm and dry. Respiratory: Airway is patent Respiratory effort is even, unlabored, Respiratory pattern is regular, symmetrical. GI: Reports nausea, vomiting. : No signs and/or symptoms were reported regarding the genitourinary system. EENT: No signs and/or symptoms were reported regarding the EENT system. Derm: Skin is intact, Skin is pink, warm \\T\\ dry. Musculoskeletal: Circulation, motion, and sensation intact. Range of motion: intact in all extremities. 22:08 Reassessment: Patient and/or family updated on plan of care and expected duration. Pain em level reassessed. Patient is alert, oriented x 3, equal unlabored respirations, skin warm/dry/pink. 22:56 Reassessment: Patient appears in no apparent distress at this time. Patient and/or jb4 family updated on plan of care and expected duration. Pain level reassessed. Patient is alert, oriented x 3, equal unlabored respirations, skin warm/dry/pink. Vital Signs: 19:27 BP 130 / 87; Pulse 109; Resp 20; Temp 99.6; Pulse Ox 98% on R/A; Weight 97.52 kg (R); bs2 Height 5 ft. 9 in. (175.26 cm); Pain 10/10; 22:00 BP 130 / 92; Pulse 93; Resp 18; Pulse Ox 97% on R/A; jb4 19:27 Body Mass Index 31.75 (97.52 kg, 175.26 cm) bs2 ED Course: 18:41 Patient arrived in ED. am2 18:41 Joe Davis MD is Private Physician. am2 19:33 Triage completed. bs2 20:41 [facility] jr8 20:41 Du Bonilla MD is Attending Physician. jr8 20:45 Patient has correct armband on for positive identification. Bed in low position. Call jb4 light in reach. Side rails up X 1. Pulse ox on. NIBP on. 20:46 Carter Puckett, MELONIE is Primary Nurse. jb4 22:05 XRAY Chest (1 view) In Process Unspecified. EDMS 22:07 Inserted saline lock: 20 gauge in left antecubital area, using aseptic technique. Blood em collected. 22:33 Joe Davis MD is Referral Physician. jr8 22:57 No provider procedures requiring assistance completed. IV discontinued, intact, jb4 bleeding controlled, No redness/swelling at site. Pressure dressing applied. Administered Medications: 22:56 Discontinued: Ringers - Lactated Ringers Solution 1000 ml IV at bolus bolus jb4 22:07 Drug: Ringers - Lactated Ringers Solution 1000 ml Route: IV; Rate: bolus; Site: left em antecubital; 22:56 Follow up: Response: No adverse reaction; IV Status: Order to discontinue infusion; IV jb4 Intake: 500ml 22:07 Drug: Zofran (Ondansetron) 4 mg Route: IVP; Site: left antecubital; em 22:55 Follow up: Response: No adverse reaction; Marked relief of symptoms; Nausea is decreasedjb4 22:07 Drug: Ketorolac 15 mg Route: IVP; Site: left antecubital; em 22:55 Follow up: Response: No adverse reaction; Marked relief of symptoms; Pain is decreased jb4 22:55 Drug: Zithromax (azithromycin) 500 mg Route: PO; jb4 22:55 Follow up: Response: Medication administered at discharge. jb4 Intake: 22:56 IV: 500ml; Total: 500ml. jb4 Outcome: 22:34 Discharge ordered by . jr8 22:57 Discharged to home ambulatory. jb4 22:57 Condition: stable 22:57 Discharge instructions given to patient, Instructed on discharge instructions, follow up and referral plans. medication usage, Demonstrated understanding of instructions, follow-up care, medications, Prescriptions given X 2. 22:57 Patient left the ED. jb4 Signatures: Dispatcher [employer] Loi Rosas, RN RN Jg Levin PA PA jr8 Carter Puckett RN RN jb4 Rocio Morgan am2 Felicitas Stark bs2
--- NOTE | 2020-11-29 22:35 | EDPHYS ---
Physician Documentation [facility] Name: Tommy Askew Age: 45 yrs Sex: Male : 1975 Arrival Date: 11/29/2020 Time: 18:41 Bed 4 Private MD: Joe Davis T ED Physician Du Bonilla HPI: 11/29 21:52 This 45 yrs old Male presents to ER via Ambulatory with complaints of jr8 Shortness Of Breath, Cough, Fever, chills, Vomiting. 21:52 Onset: The symptoms/episode began/occurred gradually. Duration: The symptoms are jr8 continuous. The patient's shortness of breath has no apparent modifying factors. Associated signs and symptoms: Pertinent positives: non-productive cough, fever, nausea, vomiting. Severity of symptoms: At their worst the symptoms were moderate in the emergency department the symptoms are unchanged. The patient has not experienced similar symptoms in the past. The patient has not recently seen a physician. Patient stated that he came into contact with infected COVID person. Symptoms for about one week. Increased cough and fatigue. Historical: - Allergies: 19:33 anything with "PM" in it; bs2 - Home Meds: 19:33 Lipitor Oral [Active]; Singulair Oral [Active]; bs2 - PMHx: 19:33 High Cholesterol; bs2 - Immunization history:: Client reports having NOT received the Covid vaccine. Flu vaccine is not up to date. - Social history:: Smoking status: Patient denies any tobacco usage or history of. - Coronavirus screen:: The patient has NOT traveled to [place] in the past 14 days. The patient has NOT had contact with known/suspected case of Coronavirus?. ROS: 21:52 Eyes: Negative for injury, pain, redness, and discharge, ENT: Negative for injury, jr8 pain, and discharge, Neck: Negative for injury, pain, and swelling, Cardiovascular: Negative for chest pain, palpitations, and edema, Back: Negative for injury and pain, MS/Extremity: Negative for injury and deformity, Skin: Negative for injury, rash, and discoloration, Neuro: Negative for headache, weakness, numbness, tingling, and seizure. 21:52 Constitutional: Positive for fatigue, fever, poor PO intake. 21:52 Respiratory: Positive for cough, shortness of breath. 21:52 Abdomen/GI: Positive for nausea and vomiting, Negative for abdominal pain, abdominal cramps, abdominal distension. Exam: 21:52 Eyes: Pupils equal round and reactive to light, extra-ocular motions intact. Lids and jr8 lashes normal. Conjunctiva and sclera are non-icteric and not injected. Cornea within normal limits. Periorbital areas with no swelling, redness, or edema. ENT: Nares patent. No nasal discharge, no septal abnormalities noted. Tympanic membranes are normal and external auditory canals are clear. Oropharynx with no redness, swelling, or masses, exudates, or evidence of obstruction, uvula midline. Mucous membranes moist. Neck: Trachea midline, no thyromegaly or masses palpated, and no cervical lymphadenopathy. Supple, full range of motion without nuchal rigidity, or vertebral point tenderness. No Meningismus. Respiratory: Lungs have equal breath sounds bilaterally, clear to auscultation and percussion. No rales, rhonchi or wheezes noted. No increased work of breathing, no retractions or nasal flaring. Abdomen/GI: Soft, non-tender, with normal bowel sounds. No distension or tympany. No guarding or rebound. No evidence of tenderness throughout. Back: No spinal tenderness. No costovertebral tenderness. Full range of motion. Skin: Warm, dry with normal turgor. Normal color with no rashes, no lesions, and no evidence of cellulitis. MS/ Extremity: Pulses equal, no cyanosis. Neurovascular intact. Full, normal range of motion. Neuro: Awake and alert, GCS 15, oriented to person, place, time, and situation. Cranial nerves II-XII grossly intact. Motor strength 5/5 in all extremities. Sensory grossly intact. Cerebellar exam normal. Normal gait. 21:52 Cardiovascular: Rate: tachycardic, Rhythm: regular, Pulses: Pulses are 2+ in right radial artery and left radial artery. Heart sounds: normal, normal S1and S2, no S3 or S4, Edema: is not appreciated. Vital Signs: 19:27 BP 130 / 87; Pulse 109; Resp 20; Temp 99.6; Pulse Ox 98% on R/A; Weight 97.52 kg (R); bs2 Height 5 ft. 9 in. (175.26 cm); Pain 10/10; 22:00 BP 130 / 92; Pulse 93; Resp 18; Pulse Ox 97% on R/A; jb4 19:27 Body Mass Index 31.75 (97.52 kg, 175.26 cm) bs2 MDM: 20:42 Patient medically screened. [facility] 21:52 Data reviewed: vital signs, nurses notes, lab test result(s), radiologic studies, plain jr8 films, and as a result, I will discharge patient. Data interpreted: Pulse oximetry: on room air is 98 %. Interpretation: normal. Counseling: I had a detailed discussion with the patient and/or guardian regarding: the historical points, exam findings, and any diagnostic results supporting the discharge/admit diagnosis, lab results, radiology results, the need for outpatient follow up, a family practitioner, to return to the emergency department if symptoms worsen or persist or if there are any questions or concerns that arise at home. 11/29 20:42 Order name: COVID-19 : Document "Date of Symptom Onset" if Symptomatic. [facility] 11/29 20:51 Order name: Flu [facility] 11/29 20:51 Order name: Influenza Screen (A ; Complete Time: 21:52 EDMS 11/29 21:20 Order name: CBC with Diff; Complete Time: 22:16 [facility] 11/29 21:20 Order name: Basic Metabolic Panel; Complete Time: 22:33 [facility] 11/29 21:20 Order name: XRAY Chest (1 view) [facility] 11/29 21:20 Order name: IV; Complete Time: 22:07 [facility] 11/29 21:54 Order name: SARS-COV-2 RT PCR; Complete Time: 21:55 EDMS Administered Medications: 22:56 Discontinued: Ringers - Lactated Ringers Solution 1000 ml IV at bolus bolus jb4 22:07 Drug: Ringers - Lactated Ringers Solution 1000 ml Route: IV; Rate: bolus; Site: left em antecubital; 22:56 Follow up: Response: No adverse reaction; IV Status: Order to discontinue infusion; IV jb4 Intake: 500ml 22:07 Drug: Zofran (Ondansetron) 4 mg Route: IVP; Site: left antecubital; em 22:55 Follow up: Response: No adverse reaction; Marked relief of symptoms; Nausea is decreasedjb4 22:07 Drug: Ketorolac 15 mg Route: IVP; Site: left antecubital; em 22:55 Follow up: Response: No adverse reaction; Marked relief of symptoms; Pain is decreased jb4 22:55 Drug: Zithromax (azithromycin) 500 mg Route: PO; jb4 22:55 Follow up: Response: Medication administered at discharge. jb4 Disposition: 11/30 05:38 Co-signature as Attending Physician, Du Bonilla MD. ma2 Disposition Summary: 11/29/20 22:34 Discharge Ordered Location: Home jr8 Problem: new jr8 Symptoms: have improved jr8 Condition: Stable jr8 Diagnosis - Pneumonia due to SARS-associated coronavirus jr8 Followup: jr8 - With: Joe Davis MD - When: 5 - 6 days - Reason: Recheck today's complaints, Continuance of care, Re-evaluation by your physician Discharge Instructions: - Discharge Summary Sheet jr8 - Community-Acquired Pneumonia, Adult jr8 - COVID-19 jr8 Forms: - Medication Reconciliation Form jr8 - Thank You Letter jr8 - Antibiotic Education jr8 - Prescription Opioid Use jr8 Prescriptions: - Zithromax Z-Royer 250 mg Oral Tablet - take 1 tablet by ORAL route as directed for 5 days Day 1 - take two (2) tablets jr8 one time. Day 2, 3, 4 , 5 take one (1) tablet once daily.; 6 tablet; Refills: 0, Product Selection Permitted - promethazine 25 mg Oral Tablet - take 1 tablet by ORAL route every 6 hours As needed; 20 tablet; Refills: 0, jr8 Product Selection Permitted Signatures: Dispatcher [employer] EDLoi Osborne RN RN Jg Levin PA PA jr8 Carter Puckett RN RN jb4 Du Bonilla MD MD ma2 Felicitas Stark bs2 Corrections: (The following items were deleted from the chart) 11/29 21:02 20:42 CORONAVIRUS ordered. EDMD EDMS
[2020-11-29] MEDS ORDERED: AZITHROMYCIN 250 MG TAB ONE ×2 (23:06→23:09)
[2020-11-29 23:44] VITALS: TEMP 99.6
[2020-11-29 23:46] VITALS: BP 130/92; O2SAT 97
--- NOTE | 2020-11-30 09:02 | RAD REPORT ---
EXAM DESCRIPTION: RAD - Chest Single View - 11/29/2020 10:06 pm CLINICAL HISTORY: DYSPNEA Chest pain. COMPARISON: No comparisons FINDINGS: Portable technique limits examination quality. [id number] interstitial opacities are present bilaterally, favoring a viral infection. Increase d right basilar lung markings are also present which may indicate an infiltrate/developing pneumonia. The heart is normal in size. No displaced fractures.
== END 2020-11-29 22:57 | disposition home or self-care (01) ==
LOC: ER 18:38
DX: U07.1 COVID-19 (principal); J12.82 Pneumonia due to coronavirus disease 2019; E78.00 Pure hypercholesterolemia, unspecified
CPT/HCPCS: 36415; 71045; 80048; 85025; 87804; J2405; J7120; U0003

== ENCOUNTER 2022-04-05 11:55 | Observation (INO) | payer SELFPAY ==
[2022-04-05] MEDS ORDERED: Ringers Lactate 1,000 ML IV ONE ×2 (12:10→15:24)
[2022-04-05] MEDS ORDERED: CEFOXITIN SODIUM 2 GM/VIAL ONE (12:10)
[2022-04-05] MEDS ORDERED: propofoL 200 MG/20 ML VIAL IV ONE (12:21)
[2022-04-05] MEDS ORDERED: MIDAZOLAM HCL 2 MG/2 ML INJ ONE (12:22)
[2022-04-05] MEDS ORDERED: LIDOCAINE 1% MPF 5 ML VIAL ONE (12:22)
[2022-04-05] MEDS ORDERED: FENTANYL CITR 100 MCG/2 ML ONE ×3 (12:22→14:29)
[2022-04-05] MEDS ORDERED: ROCURONIUM 50 MG/5 ML VIAL IV ONE ×2 (12:22→14:24)
[2022-04-05] MEDS ORDERED: CELECOXIB 100 MG CAPSULE ONE (12:28)
[2022-04-05] MEDS ORDERED: ACETAMINOPHEN 500 MG TAB ONE (12:28)
[2022-04-05] MEDS ORDERED: BUPIVACAINE 0.25% PF 30 ML VIAL ONE (12:31)
[2022-04-05] MEDS ORDERED: NS 0.9% VIAL 10 ML ONE (13:08)
[2022-04-05] MEDS ORDERED: KETOROLAC 30 MG/ML INJ ONE (13:23)
[2022-04-05] MEDS ORDERED: ONDANSETRON 4 MG/2 ML VIAL ONE (13:28)
[2022-04-05] MEDS ORDERED: GLYCOPYRROLATE 0.2 MG/ML SYR ONE (14:59)
[2022-04-05] MEDS ORDERED: NEOSTIGMINE 1 MG/ML -10 ML VIAL ONE (14:59)
--- NOTE | 2022-04-05 15:03 | P.OP ---
Preoperative diagnosis: Cholecystitis with Cholelithiasis Postoperative diagnosis: Cholecystitis with Cholelithiasis Primary procedure: Laparoscopic Cholecystectomy with ICG Cholangiography Secondary procedure: laproscopic adhesiolysis Anesthesia: GETA + Local Estimated blood loss: 50cc Specimen: Gallbladder Findings: Generalized oozing from cut surfaces, nodularity to Liver, adhesions Complications: None Implants: Deepa Hemostatic Powder Transferred to: Recovery Room Condition: Good
[2022-04-05] MEDS: HYDROMORPHONE HCL 1 MG/ML INJ ONE ×2 (15:32→15:39)
[2022-04-05] MEDS ORDERED: ONDANSETRON 4 MG/2 ML VIAL IV PRN (15:35)
--- OUTSIDE RECORDS SUMMARY | 2022-04-05 15:46 | XMS REPORT | Continuity of Care Document ---
:[address] [facility] t Address [address] [place] [place] [address] Care Team Providers Name Role Phone Susan ADAMS, Joe Villegas Primary Care Physician [phone] SABRA GARCIA Attending Clinician Unavailable Chidi Rios MD Attending Clinician Payers Payer Name Policy Type Policy Number Effective Date Expiration Date S ource Problems Condition Condition Condition Status Onset Resolution Last Treating Co mments Source Name Details Category Date Date Treatment Clinician Date Urinary Urinary Disease Active [facility] frequency frequency 2-17 Kelley ege 00:00: of 00 Medicin e Allergies, Adverse Reactions, Alerts This patient has no known allergies or adverse reactions. Family History Family Member Diagnosis Comments Start Date Stop Date Source Natural father Prostate cancer [facility] Social History Social Habit Start Date Stop Date Quantity Comments Source Tobacco use and 2020-03-30 2020-03-30 Smokeless tobacco [facility] exposure 00:00:00 00:00:00 non-user Hospital Alcohol intake 2019-07-19 2019-07-19 Ex-drinker [facility] Col lege of 00:00:00 00:00:00 (finding) Medicine Sex Assigned At [birth year] [facility] 00:[facility]00 Hospital Smoking Status Start Date Stop Date Source Never smoker [facility] o f Medicine Medications Ordered Filled Start Stop Current Ordering Indication Dosage Frequency Signature Comments Components Source Medication Medication Date Date Medication? Clinician (SIG) Name Name atorvastati 2019-06 Yes 10mg QD Take 10 mg [facility] (LIPITOR) 0-[address] 10 mg 13:25: daily. [facility]ospita tablet 51 l sodium,pota 2019-06 Yes Dispense Me thodi ssium,mag 0-[address] sulfates 00:00: follow Hospita (Suprep 00 directions l Bowel Prep per office Kit) 17.5-3.13-1 .6 gram recon soln montelukast Yes 10mg QD Take 10 mg [facility] (SINGULAIR) 9-[address] 10 mg 00:00: every Hospita tablet 00 morning. l No known No [facility] Medicin e Vital Signs Vital Name Observation Time Observation Value Comments Source Systolic blood 2019-07-19 20:12:00 133 mm[Hg] [facility] Diastolic blood 2019-07-19 20:12:00 85 mm[Hg] [facility] Heart rate 2019-07-19 20:12:00 80 /min [facility] Body temperature 2019-07-19 20:12:00 36.94 [facility] Systolic blood 2019-07-19 20:12:00 133 mm[Hg] [facility] Diastolic blood 2019-07-19 20:12:00 85 mm[Hg] [facility] Heart rate 2019-07-19 20:12:00 80 /min [facility] Body temperature 2019-07-19 20:12:00 36.94 [facility] Procedures Procedure Date / Time Performed Performing Clinician Sour e BASIC METABOLIC PANEL 2019-07-19 18:48:00 [facility] PSA,TOTAL AND FREE 2019-07-19 18:48:00 Blanca [facility] URINE CULTURE 2019-07-19 18:48:00 Blanca [facility] POCT URINALYSIS DIPSTICK 2019-07-19 00:00:00 Blanca [facility] UROFLOWMETRY 2019-07-19 00:00:00 Blanca [facility] YANDY,POST-VOID 2019-07-19 00:00:00 Blanca [facility] Medicine Plan of Care Planned Activity Planned Date Details Comments Source Future Scheduled 2022-02-01 COVID-[address] Test 16:47:47 (#1) [code = Hospital COVID-19 VACCINE (#1)] Future Scheduled 2022-02-01 Hepatitis C [facility] Test 16:47:47 screening Hospital (procedure) [code = 221741680] Future Scheduled 2022-02-01 INFLUENZA VACCINE Method ist Test 16:47:47 [code = INFLUENZA Hospital VACCINE] Future Scheduled 2022-02-01 HEPATITIS B [facility] Test 16:47:47 VACCINES (1 of 3 - Hospital 3-dose series) [code = HEPATITIS B VACCINES (1 of 3 - 3-dose series)] Future Scheduled CYTOLOGY, URINE Ordered: 07/19/2019 [facility] Test [code = 58987] of Medicine Future Scheduled URINE CULTURE Ordered: 07/19/2019 [facility] College Test [code = 630-4] of Medicine Future Scheduled CYTOLOGY, URINE Ordered: 07/19/2019 [facility] Test [code = 95934] of Medicine Future Scheduled TETANUS SHOT [facility] Kelley ege Test (ADULT) [code = of Medicine TETANUS SHOT (ADULT)] Future Scheduled HIV SCREENING [facility] Col lege Test [code = HIV of Medicine SCREENING] Future Scheduled FLU VACCINE > 6 [facility] C ollege Test MONTHS [code = FLU of Medici ne VACCINE > 6 MONTHS] Future Scheduled CYSTOSCOPY [code = 1 Occurrences [facility] Test [id number]] starting 07/19/2019 of Medic ine until 07/19/2020 Encounters Start End Encounter Admission Attending Care Care Encounter Source Date/Time Date/Time Type Type Clinicians Facility Department ID 2020-04-10 2020-04-10 Outpatient [facility] [id number] [place] 00:00:00 00:00:00 SABRA Castillo[address] [facility] 2020-03-30 2020-03-30 Outpatient [facility] [id number] [place] 00:00:00 00:00:00 SABRA [address] 2019-07-19 2019-07-19 Office MELVI Rios [id number] 11:06:44 13:01:16 Visit Chdii GUTIÉRREZ [id number] Y 0.2.7.2.686 [id number] 2019-07-19 2019-07-19 Office MELVI Rios [id number] [facility] 11:06:44 13:01:16 Visit Chidi GUTIÉRREZ [id number] College Y 0.2.7.2.686 of [id number] Medi jameson 300 e Results Test Description Test Time Test Comments Results Result Comments Source URINE CULTURE 2019-07-21 16:12:33 Test Item Value Reference Range Interpretation Comme nts URINE CULTURE (test code SPECIMEN NUMBER: [id number] CULTURE, URINE SPECIMEN = 630-4) NUMBER: [id number] SPECIMEN COMMENT: URINE SOURCE: URINE REPORT STATUS: FINAL FINAL REPORT: 020 <10,000 CFU/ML UROGENIT AL SUSANNA PRESENT NO COMM ON PATHOGENS Unless Otherwis e Indicated, All Testing Per formed At: Clinical [facility], [address] [place] [address] 4 Heel Top Lift Splitter: Michele MorrisonKVNG Puckett filiberto [id number] [place] [id number] [facility] AND [id number] 12:41:29 Test Item Value Reference Range Interpretation Comments PSA (test code See_Comment [Automated m essage] The system = 2857-1) which generated this result transmitted ref erence range: <=4.00 NG/ML. T he reference range was not used to interpret this result as jorge l/abnormal. PSA, FREE NG/ML (test code = 62858-9) PSA, % FREE 28 % SEE BELOW Methodology is Cherie Roxana (test code = Electrochemilum inescence 40847-0) Immunoassay wit h World Health Organization (W HO) calibration. $$$$$ INTERPRET WILLIAMS INFORMATION $$$$$ INTERPRET WILLIAMS TABLE: Probability of prostatic carcinoma based on percen t of free PSA in men with total PSA OF 4.00-10.00 ng/mL and negat williams digital rectal examination: Pa tient Age Free PSA 50-59 years 60- 69 years >=70 years (%) (%) (%) (% ) <=10 49 58 65 11-18 27 34 41 19-25 18 24 30 >=26 9 12 16 IN TERPRETIVE TABLE: Sensitivity and specificity for prostate carcin zeinab, men of all age groups, no prio r stratification by total PSA: Free PSA cutoff Sensitivity Spe cificity (Less than %) (%) (%) 23 86 30 25 93 20 27 96 14 (Ref: Cat cecilio WJ et al. ADRIA; 277: 1452 -1455. Makayla YT et al. Urology; 47 :518-524. Laura RP et al. Urology; 48:45-50.) Unless Otherwise Indic ated, All Testing Performed At: [facility], [address] [place] [address] 4 Heel Top Lift Splitter: Lester Roque M.D. CLIA Number [id number] [place]. [id number] [facility] METABOLIC [id number] 10:43:57 Test Item Value Reference Range Interpretation Comments GLUCOSE (test code = See_Comment [Autom ated message] The 2345-7) system which ge nerated this result tra nsmitted reference range : 70 - 99 MG/DL. The refe rence range was not u sed to interpret this result as normal/abnormal . BLOOD UREA NITROGEN See_Comment [Automa dorcas message] The (test code = 3091-6) system which generated this result tra nsmitted reference range : 6 - 20 MG/DL. The refe rence range was not u sed to interpret this result as normal/abnormal . CREATININE (test code = See_Comment [Au tomated message] The 2160-0) system which ge nerated this result tra nsmitted reference range : 0.80 - 1.40 MG/DL. The reference range was not used to interpr et this result as normal/abnormal . EGFR AA (test code = See_Comment [Autom ated message] The 12068-3) system which ge nerated this result tra nsmitted reference range : >60 ML/MIN/1.73. Th e reference range was not used to interpr et this result as normal/abnormal . EGFR (test code = See_Comment [Automate d message] The 60296-8) system which ge nerated this result tra nsmitted reference range : >60 ML/MIN/1.73. Th e reference range was not used to interpr et this result as normal/abnormal . SODIUM (test code = See_Comment [Automa dorcas message] The 2951-2) system which ge nerated this result tra nsmitted reference range : 133 - 146 MEQ/L. The reference range was not u sed to interpret this result as normal/abnormal . POTASSIUM (test code = See_Comment [Aut omated message] The 2822-07) system which ge nerated this result tra nsmitted reference range : 3.5 - 5.4 MEQ/L. The reference range was not u sed to interpret this result as normal/abnormal . CHLORIDE (test code = See_Comment [Auto mated message] The ) system which ge nerated this result tra nsmitted reference range : 95 - 107 MEQ/L. The reference range was not u sed to interpret this result as normal/abnormal . CO2 (test code = 1962-8) See_Comment [A utomated message] The system which ge nerated this result tra nsmitted reference range : 19 - 31 MEQ/L. The refe rence range was not u sed to interpret this result as normal/abnormal . CALCIUM (test code = See_Comment Unless Otherwise 95015-0) Indicated, All Testing Performed At: C linical Pathology [facility], [address] [place] [address] Director: Lester Roque M.D. CLIA Number [id number] [place]. [id number] [Autom ated message] The sy stem which generated this result transmit dorcas reference range : 8.5 - 10.5 MG/DL. The reference range was not used to interpr et this result as normal/abnormal . [facility]-VOID RES,US,[id number] 00:00:00 Test Item Value Reference Range Interpretation Comments PVR (test code = 6116) cc/ml [facility] [id number] 00:00:00 Test Item Value Reference Range Interpretation Comments PVR (test code = 6116) cc/ml PEAK FLOW (test code = 6120) cc/sec VOIDED VOLUME (test code = 6144) cc [facility] [id number] 00:00:00 Test Item Value Reference Range Interpretation Comments COLOR UA (test code = 5778-6) Yellow YELLOW/STRAW CLARITY UA (test code = 82372-8) Clear CLEAR GLUCOSE UA (test code = 5792-7) Negative NEGATIVE BILIRUBIN UA (test code = 5770-3) Negative NEGATIVE KETONES UA (test code = 78750-2) Negative NEGATIVE SPECIFIC GRAVITY UA (test code = 1.005-1.035 5811-5) BLOOD UA (test code = 5794-3) Negative NEGATIVE PH UA (test code = 5803-2) 5-9 PROTEIN UA (test code = 5804-0) Negative NEGATIVE UROBILINOGEN UA (test code = 0.02 E.U/DL NORMAL MG/DL 5818-0) LEUKOCYTE ESTERASE UA (test code Negative NEGATIVE = 5799-2) NITRITE UA (test code = 5802-4) Negative NEGATIVE REDUCING SUBSTANCES URINE (test code = 78637-5) [facility]
[2022-04-05] MEDS: HYDROMORPHONE HCL 1 MG/ML INJ IV PRN ×3 (15:47→22:01)
[2022-04-05] MEDS: Ringers Lactate 1,000 ML IV SCH (16:00)
[2022-04-05] MEDS: INSULIN -REGULAR HUMAN 50 UNIT/0.5 ML ML SQ SCH ×2 (16:30→21:00)
[2022-04-05] MEDS: PIPER TAZO 3.375 GM in NA CHLORIDE 0.9% 100 ML IV SCH (16:39)
[2022-04-05 17:14] VITALS: BMI 33.2
[2022-04-05] MEDS: HYDROCODONE/APAP 7.5/325 MG TAB PO PRN (17:17)
[2022-04-05] MEDS ORDERED: INFLUENZA VACCINE (for 6+ mo) 0.5 ML DOSE IMVAC ONE (19:00)
--- NOTE | 2022-04-06 01:12 | OP ---
Date of Procedure: 04/05/2022 Surgeon: uJan Reed MD, Preoperative Diagnosis: Cholecystitis with cholelithiasis. Postoperative Diagnosis: Cholecystitis with cholelithiasis. Procedures Performed: 1.Laparoscopic cholecystectomy with ICG cholangiography. 2.Laparoscopic adhesiolysis. Anesthesia: General endotracheal plus local with 0.25% Marcaine. Estimated Blood Loss: Approximately 50 cc. Specimen: Gallbladder and stones. Findings: Generalized oozing from all cut surfaces throughout procedure. Nodularity to the liver co nsistent with possible early hepatitis/early cirrhosis. Multiple dense adhesions from the omentum to the gallbladder as well as to the anterior abdominal wall from the midline omentum. Complications: None. Implants: Deepa hemostatic powder. Disposition: The patient was transferred to recovery room in good condition. Procedure In Detail: After informed consent was obtained, patient was brought to the operating room and prepped and draped in the usual sterile fashion. After adequate anesthesia was achieved, the sup raumbilical area was anesthetized with 0.25% Marcaine and sharply incised. A 5 mm 0-degree optical t rocar was introduced into the abdomen without evidence of any complication. Insufflation was obtaine d to 15 mmHg at this time. There was no injury to vital structures upon entry into the abdomen. Thr ee additional trocars were placed, 1 in epigastrium, 1 in the right upper quadrant, and 1 in the righ t mid abdomen. All of these were placed under direct visualization without evidence of any complicat ion, they were 5 mm trocars. The umbilical trocar was then upsized to a 12 mm under direct visualiza tion without evidence of any complication. All trocars seemed to have oozing throughout the procedur e. I placed electrocautery in the area, but they continued to have slow minimal oozing throughout th e procedure, not significant, but just continuous. I placed a 4 x 4 gauze throughout the procedure t o keep these in place to help achieve hemostasis. I then insufflated the abdomen to 15 mmHg at this time. There was no injury to vital structures. The patient was positioned head up, right-side up po sition. I had to do an adhesiolysis using the LigaSure device to expose the gallbladder as there wer e significant omental attachments to the anterior abdominal wall and to the liver. The patient's marii er had a Uvmv-Qhvk-Gzwrjd type appearance with adhesions to the anterior surface as well. I left the majority of these in place to act as a suspension for the procedure. After appropriate window was c reated by proceeding with the laparoscopic adhesiolysis, the omentum was placed back in the normal an atomic position. I then grasped the gallbladder, placed towards the patient's right shoulder. Signi ficant inflammatory changes were evident on the anterior surface of the gallbladder between the oment um as well, which required extensive adhesiolysis using electrocautery at this point as well. The ga llbladder was quite thickened with inflammatory changes on the anterior surface. I dissected down to the Perri's pouch of the gallbladder opening the peritoneum with electrocautery, circumferentiall y dissecting down to expose 2 structures and confirmed with ICG cholangiography, with the 2 structure s skeletonized and identified as the cystic duct and cystic artery. Both of these were doubly clippe d on the proximal side and singly on the distal side of both cystic duct and cystic artery. I then r emoved the gallbladder from the hepatic fossa. There was some spillage of bile due to traction injur y and some stones came out. These were retrieved later and placed in Endo Catch bag after the gallbl adder was removed. The gallbladder was removed from the hepatic fossa. The hepatic fossa had a some what oozy type appearance, which required significant fulguration. Some small aberrant posterior ves sels were appreciated coming off the hepatic fossa to the gallbladder. These were controlled with Li gaSure device, which was already in the field quite easily. I then removed the gallbladder and the s tones, which were placed in Endo Catch bag were removed through the umbilical trocar and reinsufflati on was obtained. At this point, I copiously irrigated the abdomen and suctioned out until completely dry. I had to do some additional hemostasis on the gallbladder bed, particularly on the distal tip and on the proximal right side at the edge of the cut surface. This was achieved using electrocauter y on high setting. Ultimately, hemostasis was achieved at this point. I then irrigated the area. C lips were found to be good anatomic position without leakage of bile. I then irrigated the area agai n and suctioned out the remaining effluent. Patient was positioned in neutral position temporarily a nd I sucked out the effluent once again and then patient was positioned back in head up position. I then sprayed Deepa hemostatic power, after hemostasis was achieved to ensure additional layers of pr otection with complete hemostasis. The omentum was then packed into the hepatic fossa and the patien t positioned back in neutral position. Minimal effluent was suctioned at the end the procedure. The umbilical trocar site was then closed using a Collins-Ritika suture passer with 0 Vicryl in interru pted fashion with good approximation of tissues. I then desufflated the abdomen under direct visuali zation without evidence of any complication. The remaining trocars were removed under direct visuali zation. All trocar sites were then irrigated. They required additional fulguration using electrocau dangelo and then they were closed using interrupted marko after being irrigated copiously and sterile dressing was placed over top. The patient tolerated the procedure without evidence of any complicati on and transferred to PACU in good condition. All counts were correct at the end of the case. JOSÉ LUIS/SYL Voice ID: [id number] Report ID: [id number]
[2022-04-06] MEDS: PIPER TAZO 3.375 GM in NA CHLORIDE 0.9% 100 ML IV SCH ×2 (01:18→08:53)
[2022-04-06] MEDS: Ringers Lactate 1,000 ML IV SCH (05:42)
[2022-04-06 05:51] LABS: Absolute Lymphocytes (CBC) 2.2 K/uL (0.7-4.9); Hematocrit 39.6 % (39.6-49.0); Lymphocytes % 23.8 % (15.3-44.8); MCV 89.7 fL (80-100); MPV 8.1 fL (7.6-11.3); RBC Red Blood Cell Count 4.41 M/uL (4.33-5.43)
[2022-04-06 05:56] LABS: Bilirubin Total 1.4 mg/dL (0.2-1.0); Magnesium 2.1 mg/dL (1.8-2.4); Phosphorus 4.1 mg/dL (2.5-4.9); Potassium 3.7 mmol/L (3.5-5.1); Protein, Total 6.2 g/dL (6.4-8.2)
[2022-04-06] MEDS: HYDROMORPHONE HCL 1 MG/ML INJ IV PRN (05:56)
[2022-04-06] MEDS: INSULIN -REGULAR HUMAN 50 UNIT/0.5 ML ML SQ SCH (07:30)
[2022-04-06] MEDS ORDERED: POTASSIUM 25 MEQ EFFERV TAB PO SCH (09:00)
[2022-04-06] MEDS ORDERED: POTASSIUM CL SA 10 MEQ TAB PO ONE (09:00)
[2022-04-06 09:39] VITALS: BP 119/68; TEMP 98.1
[2022-04-06 10:29] VITALS: O2SAT 93
--- NOTE | 2022-04-06 10:35 | P.DS ---
Admission Date: 04/05/22 Discharge Date: 04/06/22 Disposition: ROUTINE DISCHARGE Discharge Condition: GOOD Procedures: Laparoscopic cholecystectomy with Indocyannin Green Cholangiography Brief History of Present Illness: Patient is a 46-year-old male who had a longstanding history of right upper quadrant abdominal pain associated with greasy meals the pain was sharp and stabbing radiated to the back and right upper side as well as epigastrium he had had this for some period of time and as such came to my clinic with the above- stated complaints ultimately he had an ultrasound which confirmed cholelithiasis and as such he was deemed appropriate for operative intervention with a planned laparoscopic cholecystectomy with ICG cholangiography Hospital Course: Patient underwent a laparoscopic cholecystectomy with indocyanine green cholangiography the procedure was somewhat prolonged due to significant intra- abdominal adhesions and generalized oozing from all cut surfaces and as such he had Deepa hemostatic powder placed intraoperatively and he was admitted for observation to ensure there was no evidence of ongoing perioperative complications he ultimately did well postoperatively his labs were checked and were in a good range for postoperative care his postoperative pain was appropriate and significantly improved he was ambulatory tolerating diet and as such was deemed appropriate for discharge at this time Vital Signs/Physical Exam: Temp Pulse Resp BP Pulse Ox 98.1 F 73 16 119/68 94 04/06/22 08:00 04/06/22 08:00 04/06/22 08:00 04/06/22 08:00 04/06/22 08:00 General: Alert, In no apparent distress, Cooperative HEENT: Mucous membr. moist/pink Respiratory: Clear to auscultation bilaterally, Normal air movement Cardiovascular: No edema, Regular rate/rhythm, Normal S1 S2 Gastrointestinal: Other (Soft mild appropriate tenderness to palpation incisions clean and dry) Laboratory Data at Discharge: WBC 9.40 K/uL (4.3-10.9) 04/06/22 05:29 Hgb 14.0 g/dL (13.6-17.9) 04/06/22 05:29 Hct 39.6 % (39.6-49.0) 04/06/22 05:29 Plt Count 175 K/uL (152-406) 04/06/22 05:29 Sodium 138 mmol/L (136-145) 04/06/22 05:29 Potassium 3.7 mmol/L (3.5-5.1) 04/06/22 05:29 BUN 12 mg/dL (7-18) 04/06/22 05:29 Creatinine 0.95 mg/dL (0.55-1.3) 04/06/22 05:29 Glucose 120 mg/dL (74-106) H 04/06/22 05:29 Phosphorus 4.1 mg/dL (2.5-4.9) 04/06/22 05:29 Magnesium 2.1 mg/dL (1.8-2.4) 04/06/22 05:29 Total Bilirubin 1.4 mg/dL (0.2-1.0) H 04/06/22 05:29 AST 53 U/L (15-37) H 04/06/22 05:29 ALT 103 U/L (12-78) H 04/06/22 05:29 Alkaline Phosphatase 54 U/L (45-117) 04/06/22 05:29 Home Medications: Atorvastatin Calcium [Lipitor*] 1 tab PO DAILY 08/19/19 Montelukast [Singulair] 10 mg PO DAILY 08/19/19 Fexofenadine/Pseudoephedrine [Zoe-D 24 Hour Tablet] 1 tab PO DAILY 04/04/22 Diet: [place] Activity: No lifting more than 10 lbs Followup: Juan Reed MD [ACTIVE - CAN ADMIT] -
[2022-04-06] MEDS: HYDROCODONE/APAP 7.5/325 MG TAB PO PRN (11:25)
--- NOTE | 2022-04-08 12:18 | EKG ---
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
== END 2022-04-06 11:32 | disposition home or self-care (01) ==
LOC: OR 11:55 → 2ND 15:42
PROVIDERS: ADMIT Surgery; ATTEND Surgery
PROC: 0DNU4ZZ Release Omentum, Percutaneous Endoscopic Approach (ICD-10-PCS; 2022-04-05)
PROC: 0FT44ZZ Resection of Gallbladder, Percutaneous Endoscopic Approach (ICD-10-PCS; principal; 2022-04-05 14:30)
DX: K80.10 Calculus of gallbladder with chronic cholecystitis without obstruction (principal); R10.11 Right upper quadrant pain; K66.0 Peritoneal adhesions (postprocedural) (postinfection)
CPT/HCPCS: 36415; 80053; 82947; 83735; 84100; 85025; 88304; 93005; 94010; 94760; A4216; G0378; G0379; J0694; J1170; J2001; J2250; J2405; J2543; J2704; J2710; J3010; J7120